=== PATIENT | female | born 1975 | race Caucasian/White ===

== ENCOUNTER → 2017-07-10 | Outpatient (CLI) | payer OTHER ==
--- NOTE | 2017-07-10 10:07 | DIAGNOSTIC IMAGING REPORT ---
C-SPINE ROUTINE 4 OR 5 VIEWS HISTORY: 41 years-old Female CERVICALGIA, MSUCLE SPASM acute neck pain with muscle chiasm COMPARISON: None available TECHNIQUE: 5 views of the cervical spine FINDINGS: There is mild straightening of the normal cervical lordosis. Mild endplate spurring at the C5-C6 and C6-C7 levels. No significant intervertebral disc space narrowing or facet arthrosis. There is no acute fracture or subluxation. Bony neuroforamina appear widely patent. Lung apices appear clear. There is no prevertebral soft tissue swelling. IMPRESSION: 1. No acute fracture or subluxation. 2. Straightening of the normal cervical lordosis may be secondary to muscle spasm or patient positioning. The above report was generated using voice recognition software. It may contain grammatical, syntax or spelling errors. Electronically signed by: Scott Wisdom M.D. 07/10/2017 10:06 AM Dictated Date/Time: 07/10/2017 10:03 AM
== END | disposition home or self-care (01) ==
LOC: C.RAD 09:23
PROVIDERS: ATTEND Physician Assistant
DX: M54.2 Cervicalgia (principal); M62.838 Other muscle spasm